=== PATIENT | female | born 1940 | race Caucasian/White ===

== ENCOUNTER → 2017-02-16 | Outpatient (CLI) | payer MEDICARE, BC ==
--- NOTE | 2017-02-16 14:23 | MM ---
Reason for exam: history of breast cancer, mastectomy. Last mammogram was performed 7 months ago. History: Patient is postmenopausal and has history of breast cancer at age 74. Benign MG stereo VAD BX RT of the right breast, August 11, 2016. Malignant MG stereo VAD BX LT of the left breast, March 23, 2015. Malignant US biopsy breast VAD LT of the left breast, March 23, 2015. Mastectomy of the left breast, 2015. Benign core biopsy of the right breast, October 06, 1997. 2 excisional biopsies of the right breast. Took estrogen for 7 years 6 months beginning at age 60. Took progesterone for 16 years 6 months beginning at age 51. Taking other hormone beginning at age 74. Physical Findings: Nurse did not find any significant physical abnormalities on exam. MG 3D Diag Mammo W/Cad RT CC and MLO view(s) were taken of the right breast. Prior study comparison: August 01, 2016, right breast MG 3d diag mammo w/cad RT. March 05, 2015, left breast MG work up mamm w CAD LT. The breast tissue is heterogeneously dense. This may lower the sensitivity of mammography. Finding: There are typically benign round, segmental, grouped, diffuse and linear calcifications in the right breast. Previous mammotome biopsy in the right breast. There is no discrete abnormality. These results were verbally communicated with the patient and result sheet given to the patient on 02/16/17. ASSESSMENT: Benign, BI-RAD 2 RECOMMENDATION: Follow-up diagnostic mammogram of the right breast in 1 year.
== END | disposition home or self-care (01) ==
LOC: RADMAMWWP 13:23
PROVIDERS: ATTEND Internal Medicine
DX: Z12.31 Encounter for screening mammogram for malignant neoplasm of breast (principal); R92.8 Other abnormal and inconclusive findings on diagnostic imaging of breast
CPT/HCPCS: G0206; G0279

== ENCOUNTER → 2018-04-13 | Outpatient (CLI) | payer MEDICARE ==
--- NOTE | 2018-04-15 10:21 | MM ---
Reason for exam: screening (asymptomatic). Last mammogram was performed 1 year and 2 months ago. History: Patient is postmenopausal and has history of breast cancer at age 74. Benign MG stereo VAD BX RT of the right breast, August 11, 2016. Malignant MG stereo VAD BX LT of the left breast, March 23, 2015. Malignant US biopsy breast VAD LT of the left breast, March 23, 2015. Mastectomy of the left breast, 2015. Benign core biopsy of the right breast, October 06, 1997. 2 excisional biopsies of the right breast. Took estrogen for 7 years 6 months beginning at age 60. Took progesterone for 16 years 6 months beginning at age 51. Taking other hormone beginning at age 74. Physical Findings: A clinical breast exam by your physician is recommended on an annual basis and results should be correlated with mammographic findings. MG Screen Dion Unilateral W/Cad Bilateral CC and MLO view(s) were taken. Prior study comparison: February 16, 2017, right breast MG 3d diag mammo w/cad RT. August 01, 2016, right breast MG 3d diag mammo w/cad RT. The breast tissue is heterogeneously dense. This may lower the sensitivity of mammography. There is chronic nodularity in the right breast. Stable grouped calcifications upper outer quadrant from 2016. Subareolar asymmetric density on the MLO view appears more defined. ASSESSMENT: Incomplete: need additional imaging evaluation, BI-RAD 0 RECOMMENDATION: Special view mammogram of the right breast. [facility] will attempt to contact patient to return for supplemental views.
== END | disposition home or self-care (01) ==
LOC: RADMAMWWP 14:35
PROVIDERS: ATTEND Internal Medicine
DX: Z12.31 Encounter for screening mammogram for malignant neoplasm of breast (principal)
CPT/HCPCS: 77067

== ENCOUNTER → 2018-04-27 | Outpatient (CLI) | payer MEDICARE ==
--- NOTE | 2018-04-29 07:49 | MM ---
Reason for exam: additional evaluation requested from abnormal screening. Last mammogram was performed less than 1 month ago. History: Patient is postmenopausal and has history of breast cancer at age 74. Benign MG stereo VAD BX RT of the right breast, August 11, 2016. Malignant MG stereo VAD BX LT of the left breast, March 23, 2015. Malignant US biopsy breast VAD LT of the left breast, March 23, 2015. Mastectomy of the left breast, 2015. Benign core biopsy of the right breast, October 06, 1997. 2 excisional biopsies of the right breast. Took estrogen for 7 years 6 months beginning at age 60. Took progesterone for 16 years 6 months beginning at age 51. Taking other hormone beginning at age 74. Physical Findings: Nurse did not find any significant physical abnormalities on exam. MG 3D Work Up W/Cad RT ML and spot compression MLO view(s) were taken of the right breast. Prior study comparison: April 13, 2018, bilateral MG screen mahtew unilateral w/cad. February 16, 2017, right breast MG 3d diag mammo w/cad RT. The breast tissue is heterogeneously dense. This may lower the sensitivity of mammography. The previous seen retoareolar inferior right asymmetry improves on additional views and appears as fibroglandular tissue similar to the exam of 2016. These results were verbally communicated with the patient and result sheet given to the patient on 04/27/18. ASSESSMENT: Benign, BI-RAD 2 RECOMMENDATION: Return to routine screening mammogram schedule for both breasts.
== END | disposition home or self-care (01) ==
LOC: RADMAMWWP 15:00
PROVIDERS: ATTEND Internal Medicine
DX: R92.8 Other abnormal and inconclusive findings on diagnostic imaging of breast (principal)
CPT/HCPCS: 77065; G0279; 77061